=== PATIENT | male | born 1945 | race Caucasian/White ===

== ENCOUNTER 2018-02-16 08:21 | Emergency (ER) | payer OTHER, MEDICARE ==
--- NOTE | 2018-02-16 09:03 | RAD REPORT ---
EXAM DESCRIPTION: CT - Stone Protocol - 02/16/2018 8:47 am CLINICAL HISTORY: Abdominal pain. Right sided pain COMPARISON: None. TECHNIQUE: Computed axial tomography of the abdomen pelvis was obtained without oral or IV contrast. Lack of IV and oral contrast limits evaluation of solid organs, bowel, and vessels. Coronal reformat robin images were obtained and reviewed. All CT scans are performed using dose optimization technique as appropriate and may include automated exposure control or mA/KV adjustment according to patient size. FINDINGS: A renal calculus is not seen. An ureteral calculus is not noted. A bladder calculus is not present. A right renal arterial vascular calcification is present. A small left renal cyst is suspec robin. The liver, spleen, pancreas and adrenals appear grossly normal Minimal stranding is present adjacent to the sigmoid colon. Large number of diverticula are present. 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 Gallstones are present. The gallbladder is contracted. Spondylol ysis involves L5. A small hiatal hernia is present IMPRESSION: Negative for a genitourinary calculus Contracted gallbladder containing stones. Minimal sigmoid diverticulitis
[2018-02-16 09:30] LABS: Bicarbonate 27 mEq/L (21-31); Glucose Level 132 mg/dL (65-120); Lipase 30 U/L (22-51); Sodium Level 137 mEq/L (135-145)
[2018-02-16 09:32] LABS: Absolute Lymphocytes (CBC) 1.8 K/uL (0.7-4.9); Absolute Monocytes 0.8 K/uL (0.1-1.3); Basophils % 0.9 % (0-1.3); Eosinophils % 5.3 % (0-4.4); Hematocrit 42.6 % (39.6-49.0); Lymphocytes % 25.5 % (15.3-44.8); MCH 31.6 pg (27.0-35.0); MCV 93.9 fL (80-100); MPV 9.3 fL (7.6-11.3); Monocytes % 11.6 % (3.3-12.3); RBC Red Blood Cell Count 4.54 M/uL (4.33-5.43)
[2018-02-16 09:36] LABS: ALT/SGPT 25 IU/L (10-60); AST/SGOT 22 IU/L (10-42); Albumin 3.9 g/dL (3.2-5.5); Alkaline Phosphatase 91 IU/L (42-121); BUN Blood Urea Nitrogen 19 mg/dL (6-20); Bilirubin Direct < 0.1 mg/dL (0-0.2); Bilirubin Total 0.4 mg/dL (0.3-1.2)
--- NOTE | 2018-02-16 10:46 | EDPHYS ---
Physician Documentation [facility] Name: Bernard Huitron Age: 72 yrs Sex: Male : 1945 Arrival Date: 02/16/2018 Time: 08:24 Bed 14 Private MD: ED Physician Rufino Bansal HPI: 02/16 09:00 This 72 yrs old Male presents to ER via Ambulatory with complaints of Right pm1 Low Back Pain. 09:00 The symptoms are located in the right low back. The pain does not radiate. The problem pm1 was sustained from unknown cause. Onset: The symptoms/episode began/occurred yesterday. Associated signs and symptoms: Pertinent negatives: abdominal pain, chest pain, constipation, dysuria, fever, incontinence, nausea, numbness, tingling, vomiting, weakness. 09:00 Severity of symptoms: in the emergency department the symptoms are unchanged. The pm1 patient has not experienced similar symptoms in the past. The patient has not recently seen a physician. . Historical: - Allergies: 08:30 No Known Allergies; rb1 - Home Meds: 08:30 tamsulosin 0.4 mg oral cp24 1 cap once daily [Active]; carvedilol 25 mg oral tab 1 tab rb1 2 times per day [Active]; clopidogrel 75 mg oral tab 1 tab once daily [Active]; terbinafine HCl 250 mg oral tab 1 tab once daily [Active]; atorvastatin 80 mg oral tab 1 tab once daily [Active]; aspirin 81 mg Oral chew 1 tab once daily [Active]; multivitamin oral [Active]; - PMHx: 08:30 Hypertension; High Cholesterol; Myocardial infarction; rb1 - PSHx: 08:30 CABG; left carotid endartectomy; cataracts; rb1 - Immunization history:: Adult Immunizations. - Social history:: Smoking status: Patient/guardian denies using tobacco. ROS: 09:00 Constitutional: Negative for fever, chills, and weight loss, Eyes: Negative for injury, pm1 pain, redness, and discharge, ENT: Negative for injury, pain, and discharge, Neck: Negative for injury, pain, and swelling, Cardiovascular: Negative for chest pain, palpitations, and edema, Respiratory: Negative for shortness of breath, cough, wheezing, and pleuritic chest pain, Abdomen/GI: Negative for abdominal pain, nausea, vomiting, diarrhea, and constipation. 09:00 : Negative for injury, bleeding, discharge, and swelling, MS/Extremity: Negative for injury and deformity, Skin: Negative for injury, rash, and discoloration, Neuro: Negative for headache, weakness, numbness, tingling, and seizure. 09:00 Back: Positive for flank pain, on the right. Exam: 09:00 Constitutional: This is a well developed, well nourished patient who is awake, alert, pm1 and in no acute distress. Head/Face: Normocephalic, atraumatic. Chest/axilla: Normal chest wall appearance and motion. Nontender with no deformity. No lesions are appreciated. Cardiovascular: Regular rate and rhythm with a normal S1 and S2. No gallops, murmurs, or rubs. Normal PMI, no JVD. No pulse deficits. Respiratory: Lungs have equal breath sounds bilaterally, clear to auscultation and percussion. No rales, rhonchi or wheezes noted. No increased work of breathing, no retractions or nasal flaring. 09:00 Skin: Warm, dry with normal turgor. Normal color with no rashes, no lesions, and no evidence of cellulitis. MS/ Extremity: Pulses equal, no cyanosis. Neurovascular intact. Full, normal range of motion. 09:00 Abdomen/GI: Inspection: abdomen appears normal, Bowel sounds: normal, Palpation: abdomen is soft and non-tender, in all quadrants, Indicators: McBurney's point is not tender, Shaikh's sign is negative, Rovsing's sign is negative, Obturator sign is negative, Psoas sign is negative. 09:00 Back: pain, that is mild, of the right low back, normal spinal alignment noted, vertebral tenderness, is not appreciated. 09:00 Neuro: Orientation: is normal, Motor: is normal, moves all fours, Gait: is steady, at a normal pace, without difficulty. Vital Signs: 08:30 BP 155 / 92; Pulse 66; Resp 18; Temp 97.6(O); Pulse Ox 98% on R/A; Weight 72.57 kg; rb1 Height 5 ft. 8 in. (172.72 cm); Pain 10/10; 09:30 BP 147 / 77; Pulse 68; Resp 17; Pulse Ox 99% on R/A; rb1 10:30 BP 132 / 92; Pulse 66; Resp 17; Pulse Ox 97% on R/A; rb1 08:30 Body Mass Index 24.33 (72.57 kg, 172.72 cm) rb1 MDM: 08:27 Patient medically screened. pm1 10:43 Data reviewed: vital signs. Data interpreted: Pulse oximetry: on room air is 98 %. pm1 Interpretation: normal. Counseling: I had a detailed discussion with the patient and/or guardian regarding: the historical points, exam findings, and any diagnostic results supporting the discharge/admit diagnosis, lab results, radiology results, the need for outpatient follow up, to return to the emergency department if symptoms worsen or persist or if there are any questions or concerns that arise at home, Colonoscopy post resolution of diverticulitis. 02/16 08:32 Order name: Basic Metabolic Panel; Complete Time: 09:42 pm1 02/16 08:32 Order name: CBC with Diff; Complete Time: 09:42 pm1 02/16 08:32 Order name: Hepatic Function; Complete Time: 09:42 pm1 02/16 08:32 Order name: Lipase; Complete Time: 09:42 pm1 02/16 08:32 Order name: CT Stone Protocol; Complete Time: 09:16 pm1 02/16 10:51 Order name: Urine Dipstick--Ancillary (enter results) eb 02/16 08:32 Order name: IV Saline Lock; Complete Time: 09:18 pm1 02/16 08:32 Order name: Labs collected and sent; Complete Time: 09:19 pm1 02/16 08:32 Order name: Urine Dipstick-Ancillary (obtain specimen); Complete Time: 11:00 pm1 Administered Medications: 10:59 Drug: Flagyl 500 mg Route: PO; rb1 11:00 Follow up: Response: Medication administered at discharge. rb1 11:00 Drug: Cipro 500 mg Route: PO; rb1 11:00 Follow up: Response: Medication administered at discharge. rb1 Disposition: 14:04 Co-signature as Attending Physician, Rufino Bansal MD. rn Disposition: 02/16/18 10:45 Discharged to Home. Impression: Diverticulitis of large intestine without perforation or abscess without bleeding, Low back pain. - Condition is Stable. - Discharge Instructions: Back Pain, Adult, Diverticulitis. - Prescriptions for Flagyl 500 mg Oral Tablet - take 1 tablet by ORAL route every 8 hours for 10 days; 30 tablet. Cipro 500 mg Oral Tablet - take 1 tablet by ORAL route every 12 hours for 10 days; 20 tablet. - Medication Reconciliation Form, Thank You Letter, Antibiotic Education form. - Follow up: Emergency Department; When: As needed; Reason: Worsening of condition. Follow up: Ruperto Morel MD; When: 2 - 3 days; Reason: Recheck today's complaints, Continuance of care, Re-evaluation by your physician. - Problem is new. - Symptoms have improved. Signatures: Dispatcher [employer] EDMS Rufino Bansal MD MD rn Corine Mcduffie RN RN ss Frieda Eden RN RN rb1 Jorge Magallanes, ELEUTERIO CHICKEN HATCHERY HELPER pm1 Corrections: (The following items were deleted from the chart) 10:47 10:45 02/16/2018 10:45 Discharged to Home. Impression: Diverticulitis of large pm1 intestine without perforation or abscess without bleeding. Condition is Stable. Forms are Medication Reconciliation Form, Thank You Letter, Antibiotic Education, Prescription Opioid Use. Follow up: Emergency Department; When: As needed; Reason: Worsening of condition. Follow up: Ruperto Morel; When: 2 - 3 days; Reason: Recheck today's complaints, Continuance of care, Re-evaluation by your physician. Problem is new. Symptoms have improved. pm1 11:04 10:47 02/16/2018 10:45 Discharged to Home. Impression: Diverticulitis of large rb1 intestine without perforation or abscess without bleeding; Low back pain. Condition is Stable. Discharge Instructions: Diverticulitis, Back Pain, Adult. Prescriptions for Flagyl 500 mg Oral Tablet - take 1 tablet by ORAL route every 8 hours for 10 days; 30 tablet, Cipro 500 mg Oral Tablet - take 1 tablet by ORAL route every 12 hours for 10 days; 20 tablet. and Forms are Medication Reconciliation Form, Thank You Letter, Antibiotic Education. Follow up: Emergency Department; When: As needed; Reason: Worsening of condition. Follow up: Ruperto Morel; When: 2 - 3 days; Reason: Recheck today's complaints, Continuance of care, Re-evaluation by your physician. Problem is new. Symptoms have improved. pm1
--- NOTE | 2018-02-16 10:46 | ER ---
Nurse's Notes [facility] Name: Bernard Huitron Age: 72 yrs Sex: Male : 1945 Arrival Date: 02/16/2018 Time: 08:24 Bed 14 Private MD: Diagnosis: Diverticulitis of large intestine without perforation or abscess without bleeding;Low back pain Presentation: 02/16 08:30 Presenting complaint: Patient states: R low back pain that began yesterday. Denies ss injury. Is worse with walking and standing up from a sitting position. Transition of care: patient was not received from another setting of care. Onset of symptoms was February 15, 2018. Initial Sepsis Screen: Does the patient meet any 2 criteria? No. Patient's initial sepsis screen is negative. Does the patient have a suspected source of infection? No. Patient's initial sepsis screen is negative. Care prior to arrival: None. 08:30 Method Of Arrival: Ambulatory ss 08:30 Acuity: NATALIE 3 ss Historical: - Allergies: 08:30 No Known Allergies; rb1 - Home Meds: 08:30 tamsulosin 0.4 mg oral cp24 1 cap once daily [Active]; carvedilol 25 mg oral tab 1 tab rb1 2 times per day [Active]; clopidogrel 75 mg oral tab 1 tab once daily [Active]; terbinafine HCl 250 mg oral tab 1 tab once daily [Active]; atorvastatin 80 mg oral tab 1 tab once daily [Active]; aspirin 81 mg Oral chew 1 tab once daily [Active]; multivitamin oral [Active]; - PMHx: 08:30 Hypertension; High Cholesterol; Myocardial infarction; rb1 - PSHx: 08:30 CABG; left carotid endartectomy; cataracts; rb1 - Immunization history:: Adult Immunizations. - Social history:: Smoking status: Patient/guardian denies using tobacco. Screenin:30 Abuse screen: Denies threats or abuse. Nutritional screening: No deficits noted. rb1 Tuberculosis screening: No symptoms or risk factors identified. Fall Risk None identified. Assessment: 08:30 General: Appears in no apparent distress. comfortable, Behavior is calm, cooperative. rb1 Pain: Complains of pain in right low back Pain currently is 10 out of 10 on a pain scale. Pain began 1 day ago. Aggravated by increased activity. Neuro: Level of Consciousness is awake, alert, obeys commands, Oriented to person, place, time, situation. Cardiovascular: Capillary refill < 3 seconds is brisk in bilateral fingers. Respiratory: Airway is patent Respiratory effort is even, unlabored, Respiratory pattern is regular, symmetrical. GI: No signs and/or symptoms were reported involving the gastrointestinal system. : No signs and/or symptoms were reported regarding the genitourinary system. Derm: Skin is pink, warm \T\ dry. Musculoskeletal: Range of motion: intact in all extremities. 09:30 Reassessment: Patient appears in no apparent distress at this time. No changes from rb1 previously documented assessment. 10:30 Reassessment: Patient appears in no apparent distress at this time. Patient and/or rb1 family updated on plan of care and expected duration. Pain level reassessed. Patient is alert, oriented x 3, equal unlabored respirations, skin warm/dry/pink. Vital Signs: 08:30 BP 155 / 92; Pulse 66; Resp 18; Temp 97.6(O); Pulse Ox 98% on R/A; Weight 72.57 kg; rb1 Height 5 ft. 8 in. (172.72 cm); Pain 10/10; 09:30 BP 147 / 77; Pulse 68; Resp 17; Pulse Ox 99% on R/A; rb1 10:30 BP 132 / 92; Pulse 66; Resp 17; Pulse Ox 97% on R/A; rb1 08:30 Body Mass Index 24.33 (72.57 kg, 172.72 cm) [facility] ED Course: 08:24 Patient arrived in ED. sb2 08:26 Jorge Magallanes NP is PSYCHIATRICP. pm1 08:26 Rufino Bansal MD is Attending Physician. pm1 08:30 Arm band placed on right wrist. ss 08:30 Patient has correct armband on for positive identification. Bed in low position. Call rb1 light in reach. Side rails up X 1. Pulse ox on. NIBP on. 08:31 Triage completed. ss 08:39 Frieda Eden, WILLIE is Primary Nurse. rb1 08:39 CT completed. Patient moved to CT via wheelchair. Patient moved back from CT. cw1 08:45 Inserted saline lock: 22 gauge in right antecubital area, using aseptic technique. rb1 Blood collected. 08:47 CT Stone Protocol In Process Unspecified. EDMS 10:45 Ruperto Morel MD is Referral Physician. pm1 11:03 No provider procedures requiring assistance completed. IV discontinued, intact, rb1 bleeding controlled, No redness/swelling at site. Pressure dressing applied. Administered Medications: 10:59 Drug: Flagyl 500 mg Route: PO; rb1 11:00 Follow up: Response: Medication administered at discharge. rb1 11:00 Drug: Cipro 500 mg Route: PO; rb1 11:00 Follow up: Response: Medication administered at discharge. rb1 Outcome: :45 Discharge ordered by . pm1 11:03 Discharged to home ambulatory. rb1 11:03 Condition: stable 11:03 Discharge instructions given to patient, Instructed on discharge instructions, follow up and referral plans. medication usage, Demonstrated understanding of instructions, follow-up care, medications, Prescriptions given X 2. 11:04 Patient left the ED. rb1 Signatures: Dispatcher [employer] EDMS Corine Mcduffie RN RN ss Ginger Freedman cw1 Frieda Eden RN RN rb1 Jorge Magallanes, TABLE MAKER TABLE MAKER pm1 Magaly Sepulveda sb2 Corrections: (The following items were deleted from the chart) 08:33 08:30 Acuity: NATALIE 4 ss 09:42 08:30 BP 155 / 92; Pulse 66bpm; Resp 18bpm; Pulse Ox 98% RA; Temp 97.6F Oral; Pain rb1 07/24; rb1
[2018-02-16] MEDS ORDERED: metroNIDAZOLE 500 MG TABLET ONE (10:51)
[2018-02-16] MEDS ORDERED: CIPROFLOXACIN HCL 500 MG TAB ONE (10:52)
[2018-02-16 11:09] VITALS: TEMP 97.6
[2018-02-16 11:11] VITALS: BP 132/92; O2SAT 97
[2018-02-16 11:14] LABS: Urine Blood NEGATIVE (NEG); Urine Glucose NEGATIVE (NEG); Urine Protein NEGATIVE (NEG); Urine Specific Gravity 1.005 (1.005-1.030); Urine pH 6.5 (5.0-7.0)
== END 2018-02-16 11:04 | disposition home or self-care (01) ==
LOC: ER 08:21
DX: K57.32 Diverticulitis of large intestine without perforation or abscess without bleeding (principal); Z95.1 Presence of aortocoronary bypass graft; I10 Essential (primary) hypertension; E78.00 Pure hypercholesterolemia, unspecified; I25.2 Old myocardial infarction; Z79.82 Long term (current) use of aspirin
CPT/HCPCS: 36415; 74176; 76377; 80048; 80076; 81003; 83690; 85025; 99284

== ENCOUNTER 2018-03-29 08:45 | Emergency (ER) | payer OTHER, MEDICARE ==
[2018-03-29 11:34] LABS: Absolute Lymphocytes (CBC) 1.8 K/uL (0.7-4.9); Absolute Monocytes 1.2 K/uL (0.1-1.3); Absolute Neutrophil 4.6 K/uL (1.8-8.0); Basophils % 1.3 % (0-1.3); Eosinophils % 4.4 % (0-4.4); Hematocrit 41.4 % (39.6-49.0); Lymphocytes % 22.8 % (15.3-44.8); MCH 32.2 pg (27.0-35.0); MCV 93.2 fL (80-100); MPV 8.6 fL (7.6-11.3); Monocytes % 14.6 % (3.3-12.3); RBC Red Blood Cell Count 4.44 M/uL (4.33-5.43)
[2018-03-29 11:46] LABS: Potassium 4.4 mEq/L (3.6-5.0)
--- NOTE | 2018-03-29 12:10 | ER ---
Nurse's Notes [facility] Name: Bernard Huitron Age: 73 yrs Sex: Male : 1945 Arrival Date: 03/29/2018 Time: 08:50 Bed 7 Private MD: JIMMY GAVIRIA Diagnosis: Hypotension Presentation: 03/29 08:56 Presenting complaint: Patient states: High blood pressure and dizziness since sg Sunday, reports feeling like I might pass out from time to time when I get up in the mornings. denies CP, AMAYA, N/V/D, denies fever. Transition of care: patient was not received from another setting of care. Onset of symptoms was March 27, 2018. Risk Assessment: Do you want to hurt yourself or someone else? Patient reports no desire to harm self or others. Initial Sepsis Screen: Does the patient meet any 2 criteria? No. Patient's initial sepsis screen is negative. Does the patient have a suspected source of infection? No. Patient's initial sepsis screen is negative. Care prior to arrival: None. 08:56 Method Of Arrival: Ambulatory 08:56 Acuity: NATALIE 3 sg Historical: - Allergies: 08:53 No Known Allergies; sg - Home Meds: 08:53 aspirin 81 mg Oral chew 1 tab once daily [Active]; atorvastatin 80 mg Oral tab 1 tab sg once daily [Active]; carvedilol 25 mg Oral tab 1 tab 2 times per day [Active]; clopidogrel 75 mg Oral tab 1 tab once daily [Active]; multivitamin Oral [Active]; tamsulosin 0.4 mg Oral cp24 1 cap once daily [Active]; terbinafine HCl 250 mg Oral tab 1 tab once daily [Active]; - PMHx: 08:53 High Cholesterol; Hypertension; Myocardial infarction; sg - PSHx: 08:53 CABG; left carotid endartectomy; cataracts; sg - Immunization history:: Adult Immunizations up to date. - Social history:: Smoking status: Patient/guardian denies using tobacco. - Ebola Screening: : Patient negative for fever greater than or equal to 101.5 degrees Fahrenheit, and additional compatible Ebola Virus Disease symptoms Patient denies exposure to infectious person Patient denies travel to an Ebola-affected area in the 21 days before illness onset No symptoms or risks identified at this time. Screenin:00 Abuse screen: Denies threats or abuse. Denies injuries from another. Nutritional sg screening: No deficits noted. Tuberculosis screening: No symptoms or risk factors identified. Never had TB. Fall Risk None identified. Assessment: 09:00 General: Appears in no apparent distress. comfortable, well groomed, well developed, sg well nourished, Behavior is calm, cooperative, appropriate for age. Pain: Denies pain. Neuro: Level of Consciousness is awake, alert, obeys commands, Oriented to person, place, time, situation, Hair Blender are equal bilaterally Moves all extremities. Full function Gait is steady, Speech is normal, Facial symmetry appears normal, Pupils are PERRL. Cardiovascular: Reports lightheadedness, since in the morning time upon standing since Sunday Denies chest pain, diaphoresis, fatigue, nausea, palpitations, shortness of breath, syncope, vomiting, Heart tones S1 S2 present Capillary refill is brisk in bilateral fingers Patient's skin is warm and dry. Chest pain is denied. Respiratory: Airway is patent Respiratory effort is even, unlabored, Respiratory pattern is regular, symmetrical, Breath sounds are clear Denies cough, shortness of breath labored breathing. GI: No signs and/or symptoms were reported involving the gastrointestinal system. : No signs and/or symptoms were reported regarding the genitourinary system. EENT: No signs and/or symptoms were reported regarding the EENT system. Derm: Skin is pink, warm \T\ dry. Musculoskeletal: No signs and/or symptoms reported regarding the musculoskeletal system. Vital Signs: 08:58 BP 132 / 76; Pulse 88; Resp 16; Temp 97.2(TE); Pulse Ox 96% on R/A; Weight 73.94 kg sg (R); Height 5 ft. 8 in. (172.72 cm); Pain 0/10; 09:16 BP 128 / 72 Sitting; Pulse 77; sg 09:18 BP 98 / 63 Standing; Pulse 72; sg 09:51 BP 123 / 70; Pulse 72; Resp 17; Pulse Ox 98% on R/A; Pain 0/10; sg 08:58 Body Mass Index 24.78 (73.94 kg, 172.72 cm) ED Course: 08:50 Patient arrived in ED. sb2 08:50 JIMMY GAVIRIA is Private Physician. sb2 08:51 Toy Thomas MD is Attending Physician. kdr 08:52 Cristian Varela, RN is Primary Nurse. sg 08:54 Arm band placed on. sg 08:58 Triage completed. sg 09:00 Patient has correct armband on for positive identification. Bed in low position. Call light in reach. Side rails up X2. wooden boat builder on. Pulse ox on. NIBP on. Warm blanket given. Head of bed. 09:21 EKG done, by semiconductor lab technician. reviewed by Toy Thomas MD. at1 13:01 No provider procedures requiring assistance completed. IV discontinued, intact, ss bleeding controlled, No redness/swelling at site. Pressure dressing applied. Administered Medications: No medications were administered Outcome: 12:09 Discharge ordered by . kdr 13:01 Discharged to home ambulatory. ss 13:01 Condition: good 13:01 Discharge instructions given to patient, Instructed on discharge instructions, follow up and referral plans. medication usage, Demonstrated understanding of instructions, follow-up care, medications. 13:02 Patient left the ED. ss Signatures: Cristian Varela, RN RN Toy Thomas MD MD kdr Smirch, Shelby, RN RN Zully baer, bag machine adjuster EKG Tat1 Magaly Sepulveda sb2
--- NOTE | 2018-03-29 12:10 | EDPHYS ---
Physician Documentation [facility] Name: Bernard Huitron Age: 73 yrs Sex: Male : 1945 Arrival Date: 03/29/2018 Time: 08:50 Bed 7 Private MD: JIMMY GAVIRIA ED Physician Toy Thomas HPI: 03/29 09:46 This 73 yrs old Male presents to ER via Ambulatory with complaints of Blood kdr Pressure Problem. 09:46 The patient states that on Sunday, he noted that his BP was low when he was kdr exercising. He sat down and was told to drink some water. He felt better after awhile until this morning when he again had similar s/s. Aside from some dizziness and lightheadness, he has no other associated s/s. Onset: The symptoms/episode began/occurred gradually, today. Severity of symptoms: At their worst the symptoms were mild in the emergency department the symptoms are unchanged have improved mildly. The patient has experienced similar episodes in the past, a few times. The patient has not recently seen a physician. Historical: - Allergies: 08:53 No Known Allergies; sg - Home Meds: 08:53 aspirin 81 mg Oral chew 1 tab once daily [Active]; atorvastatin 80 mg Oral tab 1 tab sg once daily [Active]; carvedilol 25 mg Oral tab 1 tab 2 times per day [Active]; clopidogrel 75 mg Oral tab 1 tab once daily [Active]; multivitamin Oral [Active]; tamsulosin 0.4 mg Oral cp24 1 cap once daily [Active]; terbinafine HCl 250 mg Oral tab 1 tab once daily [Active]; - PMHx: 08:53 High Cholesterol; Hypertension; Myocardial infarction; sg - PSHx: 08:53 CABG; left carotid endartectomy; cataracts; sg - Immunization history:: Adult Immunizations up to date. - Social history:: Smoking status: Patient/guardian denies using tobacco. - Ebola Screening: : Patient negative for fever greater than or equal to 101.5 degrees Fahrenheit, and additional compatible Ebola Virus Disease symptoms Patient denies exposure to infectious person Patient denies travel to an Ebola-affected area in the 21 days before illness onset No symptoms or risks identified at this time. ROS: 09:46 Constitutional: Negative for fever, chills, and weight loss, Eyes: Negative for injury, kdr pain, redness, and discharge, ENT: Negative for injury, pain, and discharge, Neck: Negative for injury, pain, and swelling, Cardiovascular: Negative for chest pain, palpitations, and edema, Respiratory: Negative for shortness of breath, cough, wheezing, and pleuritic chest pain, Abdomen/GI: Negative for abdominal pain, nausea, vomiting, diarrhea, and constipation, Back: Negative for injury and pain, : Negative for injury, bleeding, discharge, and swelling, MS/Extremity: Negative for injury and deformity, Skin: Negative for injury, rash, and discoloration, Psych: Negative for depression, anxiety, suicide ideation, homicidal ideation, and hallucinations, Allergy/Immunology: Negative for hives, rash, and allergies, Endocrine: Negative for neck swelling, polydipsia, polyuria, polyphagia, and marked weight changes, Hematologic/Lymphatic: Negative for swollen nodes, abnormal bleeding, and unusual bruising. 09:46 Neuro: Positive for dizziness, weakness, Negative for altered mental status, gait disturbance, headache, hearing loss, loss of consciousness, numbness, seizure activity, speech changes, syncope, near syncope, tingling, tinnitus, tremor, visual changes. Exam: 09:46 Constitutional: This is a well developed, well nourished patient who is awake, alert, kdr and in no acute distress. Head/Face: Normocephalic, atraumatic. Eyes: Pupils equal round and reactive to light, extra-ocular motions intact. Lids and lashes normal. Conjunctiva and sclera are non-icteric and not injected. Cornea within normal limits. Periorbital areas with no swelling, redness, or edema. Neck: Trachea midline, no thyromegaly or masses palpated, and no cervical lymphadenopathy. Supple, full range of motion without nuchal rigidity, or vertebral point tenderness. No Meningismus. Chest/axilla: Normal chest wall appearance and motion. Nontender with no deformity. No lesions are appreciated. Cardiovascular: Regular rate and rhythm with a normal S1 and S2. No gallops, murmurs, or rubs. Normal PMI, no JVD. No pulse deficits. Respiratory: Lungs have equal breath sounds bilaterally, clear to auscultation and percussion. No rales, rhonchi or wheezes noted. No increased work of breathing, no retractions or nasal flaring. Abdomen/GI: Soft, non-tender, with normal bowel sounds. No distension or tympany. No guarding or rebound. No evidence of tenderness throughout. Back: No spinal tenderness. No costovertebral tenderness. Full range of motion. Skin: Warm, dry with normal turgor. Normal color with no rashes, no lesions, and no evidence of cellulitis. MS/ Extremity: Pulses equal, no cyanosis. Neurovascular intact. Full, normal range of motion. Neuro: Awake and alert, GCS 15, oriented to person, place, time, and situation. Cranial nerves II-XII grossly intact. Motor strength 5/5 in all extremities. Sensory grossly intact. Cerebellar exam normal. Normal gait. Psych: Awake, alert, with orientation to person, place and time. Behavior, mood, and affect are within normal limits. Vital Signs: 08:58 BP 132 / 76; Pulse 88; Resp 16; Temp 97.2(TE); Pulse Ox 96% on R/A; Weight 73.94 kg sg (R); Height 5 ft. 8 in. (172.72 cm); Pain 0/10; 09:16 BP 128 / 72 Sitting; Pulse 77; sg 09:18 BP 98 / 63 Standing; Pulse 72; sg 09:51 BP 123 / 70; Pulse 72; Resp 17; Pulse Ox 98% on R/A; Pain 0/10; sg 08:58 Body Mass Index 24.78 (73.94 kg, 172.72 cm) sg MDM: 09:46 Data reviewed: vital signs, nurses notes, lab test result(s), radiologic studies. kdr 12:09 Patient medically screened. kdr 12:10 Special discussion: I discussed with the patient/guardian in detail that at this point kdr there is no indication for admission to the hospital. It is understood, however, that if the symptoms persist or worsen the patient needs to return immediately for re-evaluation. ED course: The patient was asymptomatic in the ED and without other c/o. 03/29 10:58 Order name: CBC with Diff; Complete Time: 11:41 kdr 03/29 10:58 Order name: Chem 7; Complete Time: 11:50 kdr 03/29 09:04 Order name: EKG - Nurse/Tech; Complete Time: 09:04 sg 03/29 09:04 Order name: EKG; Complete Time: 09:05 03/29 11:53 Order name: Diet Regular; Complete Time: 11:53 sv Administered Medications: No medications were administered Disposition: 03/29/18 12:09 Discharged to Home. Impression: Hypotension. - Condition is Stable. - Discharge Instructions: Hypotension, [id number], Weakness, [id number]. - Medication Reconciliation Form, Thank You Letter form. - Follow up: Private Physician; When: 2 - 3 days; Reason: If symptoms return, Further diagnostic work-up, Recheck today's complaints, Continuance of care, Re-evaluation by your physician. - Problem is an ongoing problem. - Symptoms have improved. Signatures: Dispatcher [employer] EDMS Cristian Varela RN RN Toy Thomas MD MD [facility] Corine Mcduffie RN RN ss Corrections: (The following items were deleted from the chart) 13:02 12:09 03/29/2018 12:09 Discharged to Home. Impression: Hypotension. Condition is ss Stable. Forms are Medication Reconciliation Form, Thank You Letter, Antibiotic Education, Prescription Opioid Use. Follow up: Private Physician; When: 2 - 3 days; Reason: If symptoms return, Further diagnostic work-up, Recheck today's complaints, Continuance of care, Re-evaluation by your physician. Problem is an ongoing problem. Symptoms have improved. kdr
[2018-03-29 13:07] VITALS: TEMP 97.2
[2018-03-29 13:10] VITALS: BP 123/70; O2SAT 98
--- NOTE | 2018-03-29 14:07 | EKG ---
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
== END 2018-03-29 13:02 | disposition home or self-care (01) ==
LOC: ER 08:45
DX: I95.9 Hypotension, unspecified (principal); E78.00 Pure hypercholesterolemia, unspecified; I25.2 Old myocardial infarction
CPT/HCPCS: 36415; 80048; 85025; 93005; 99284